=== PATIENT | female | born 1955 | race Caucasian/White ===

== ENCOUNTER 2016-06-01 14:41 | Emergency (ER) | payer BC ==
[~2016-06-01] VITALS: Ht 157.5 cm; Wt 134.0 kg
[~2016-06-01 14:41] MED LIST: ALBUTEROL2.5 MG/3 M IH; ALLOPURINOL300 MG PO; ARTHROTEC 751 TABLET PO; ASPIR 8181 M1 PO; ASPIR-LOW81 MG PO; ASPIRIN81 M2 PO; AZELASTINE137 MCG/0. BOTH NARES; AZITHROMYCIN500 M1 PO; BACTRIM,SEPT1 TABLET PO; BENICAR40 MG PO; BREO ELLIPTA I1 EACH IH; Bactrim,Septra DS 80 PO; CELECOXIB200 MG PO; COUMADIN1 MG PO; CRANBERRY TABL1 EACH PO; Coumadin,Jantoven PO; Cranberry PO; DOCUSATE SODIU100 MG PO; FERROUS SULFAT325 MG PO; FLOVENT 22120 INHALA IH; Flovent 220 mcg IH; GLUCOSA-CHOND-1 EACH PO; Glucophage PO; LASIX40 MG PO; LEVAQUIN750 MG PO; LIPITOR40 MG PO; Lasix PO; Lipitor PO; METFORMIN HCL500 MG PO; MUCINEX ALLERG180 MG PO; MUCINEX1200 MG PO; MULTI-VITAMIN1 EAC4 PO; NEXIUM40 MG PO; OXYCODONE HCL5 MG PO; OXYCODONE-ACET1 EACH PO; PREDNISONE10 MG PO; PREDNISONE20 MG PO; PREDNISONE5 MG PO; Proventil,Ventolin H IH; ROBITUSSIN AC,T10 ML PO; SENOKOT,SENN1 TABLET PO; SINGULAIR10 MG PO; Senokot S,Pericolace PO; Singulair PO; TESSALON PERLE100 MG PO; TRADJENTA5 MG PO; TYLENOL REGULA325 MG PO; Theragran PO; VENTOLIN HFA18 GM IH; VITAMIN C250 MG PO; ZANTAC150 MG PO; ZYRTEC10 M3 PO; Zantac,Taladine PO; Zyloprim PO; oxyCODONE PO
[2016-06-01 15:26] LABS: PROTHROMBIN TIME 10.5 (9.2-11.2); PTT 22.6 (25-32)
[2016-06-01 15:32] LABS: HEMATOCRIT 30.8 % (36.0-46.0); MCH 24.1 PG (29.0-34.0); MCHC 29.5 G/DL (30.0-36.0); MEAN PLAT.VOLUME 10.4 uM^3 (9.5-12.4); RBC DIS.WIDTH-CV 17.1 % (11.8-14.6); RBC DIS.WIDTH-SD 50.9 % (39-53); RED BLOOD COUNT 3.77 M/uL (3.80-5.20)
[2016-06-01 15:48] LABS: MCV 81.7 FL (83-99); PLATELET COUNT 299 K/uL (156-360); WHITE BLOOD COUNT 9.3 K/uL (4.1-10.2)
[2016-06-01 16:57] LABS: CARBON DIOXIDE (BICARBONATE) 32.5 MEQ/L (20-31)
[2016-06-01 17:00] LABS: CHLORIDE 98 mEq/L (99-109); POTASSIUM 4.8 mEq/L (3.7-5.4); SODIUM 136 mEq/L (136-147)
[2016-06-01 17:03] LABS: ANION GAP 12 MEQ/L (2-14)
[2016-06-01 17:04] LABS: TOTAL BILIRUBIN 0.7 mg/dL (0.0-1.0)
[2016-06-01 17:06] LABS: ALKALINE PHOSPHATASE 121 IU/L (3-129); GFR ESTIMATE (CALCULATED) 41 mL/min/
[2016-06-01 17:07] LABS: UREA NITROGEN (BUN) 35 mg/dL (9-23)
[2016-06-01 17:12] LABS: GLUCOSE 557 mg/dL (70-99)
[2016-06-01 17:25] LABS: ADD MIUA? NO; BILIRUBIN NEGATIVE; BLOOD NEGATIVE; COLOR YELLOW ((YELLOW)); GLUCOSE (STRIP) >=1000; KETONES NEGATIVE; LEUKOCYTES NEGATIVE; NITRITE NEGATIVE; PH, URINE 6.5 (5-8); PROTEIN (STRIP) NEGATIVE; SPECIFIC GRAVITY 1.025 (1.000-1.030); UCUL ADDED? NO; UROBILINOGEN 0.2 MG/DL (0.2-1.0)
[2016-06-01 18:55] LABS: POINT-OF-CARE METER ID UU13113702
[2016-06-01] MEDS ORDERED: METFORMIN HCL500 MG PO (20:32)
[2016-06-01 20:41] VITALS: BP 142/63
[2016-06-02 12:07] LABS: POINT-OF-CARE METER ID UU13113694
[2016-06-02 12:08] LABS: POINT-OF-CARE METER ID UU13113702
[2016-06-04] MEDS ORDERED: GLUCOPHAGE1000 MG PO (09:24)
[2016-06-04] MEDS ORDERED: ACTOS45 MG PO (09:25)
[2016-06-04] MEDS ORDERED: TRADJENTA5 MG PO (09:33)
[2016-07-15] MEDS ORDERED: PREDNISONE20 MG PO (13:33)
[2016-07-15] MEDS ORDERED: LANTUS 10100 UNITS/ SC (13:34)
== END 2016-06-01 21:04 | disposition home or self-care (01) ==
LOC: RAD 14:41 → EME 14:41
PROVIDERS: Emergency Medicine; Internal Medicine Pulmonary Disease; Physician Assistant
DX: E11.65 Type 2 diabetes mellitus with hyperglycemia (principal); I10 Essential (primary) hypertension; K21.9 Gastro-esophageal reflux disease without esophagitis; J45.909 Unspecified asthma, uncomplicated; Z79.82 Long term (current) use of aspirin; Z87.891 Personal history of nicotine dependence; Z96.653 Presence of artificial knee joint, bilateral
CPT/HCPCS: 80053; 81003; 82803; 82948; 85027; 85610; 85730; 99281; 99284; J1815; J7120

== ENCOUNTER → 2016-06-07 | Outpatient (CLI) | payer BC ==
[~2016-06-07] VITALS: Ht 157.5 cm; Wt 132.9 kg
[~2016-06-07] MED LIST changes: +ACTOS45 MG PO; +GLUCOPHAGE1000 MG PO
[2016-06-07 15:53] LABS: HEMATOCRIT 30.6 % (36.0-46.0); MCH 23.4 PG (29.0-34.0); MCHC 29.1 G/DL (30.0-36.0); MCV 80.3 FL (83-99); MEAN PLAT.VOLUME 10.1 uM^3 (9.5-12.4); PLATELET COUNT 228 K/uL (156-360); RBC DIS.WIDTH-CV 17.3 % (11.8-14.6); RBC DIS.WIDTH-SD 50.6 % (39-53); RED BLOOD COUNT 3.81 M/uL (3.80-5.20); WHITE BLOOD COUNT 7.4 K/uL (4.1-10.2)
[2016-06-07 15:58] LABS: EOSINOPHIL (%) 0.1 % (0-5); IMMATURE GRANULOCYTE (%) 0.3 % (0.0-0.7); LYMPHOCYTE COUNT 0.6 K/uL (1.0-2.8); MONOCYTE (%) 2.2 % (3-12); MONOCYTE COUNT 0.2 K/uL (0-0.8); NEUTROPHIL (%) 89.3 % (45-76); NEUTROPHIL COUNT 6.6 K/uL (1.8-6.4)
[2016-06-07 16:09] LABS: PROTHROMBIN TIME 10.3 (9.2-11.2)
[2016-06-07 17:10] LABS: POINT-OF-CARE METER ID UU13113694
[2016-06-08 10:24] LABS: POINT-OF-CARE METER ID UU13113694
== END | disposition home or self-care (01) ==
LOC: AMB 14:21
PROVIDERS: Internal Medicine Pulmonary Disease
DX: R05 Cough (principal); R06.02 Shortness of breath; Z53.9 Procedure and treatment not carried out, unspecified reason
CPT/HCPCS: 82948; 85025; 85610; 85730; 99215; J1815

== ENCOUNTER → 2016-07-20 | Outpatient (CLI) | payer BC ==
[~2016-07-20] VITALS: Ht 157.5 cm; Wt 132.9 kg
[~2016-07-20] MED LIST changes: +LANTUS 10100 UNITS/ SC
[2016-07-20 13:49] LABS: POINT-OF-CARE METER ID UU13113694; POINT-OF-CARE USER ID AHSUCAJR
[2016-07-20 14:19] LABS: HEMATOCRIT 32.5 % (36.0-46.0); MCH 22.6 PG (29.0-34.0); MCHC 28.3 G/DL (30.0-36.0); MCV 79.9 FL (83-99); RBC DIS.WIDTH-CV 20.7 % (11.8-14.6); RBC DIS.WIDTH-SD 59.5 % (39-53); RED BLOOD COUNT 4.07 M/uL (3.80-5.20); WHITE BLOOD COUNT 8.8 K/uL (4.1-10.2)
[2016-07-20 14:41] LABS: PTT 23.2 (25-32)
[2016-07-20 15:37] LABS: HEMATOLOGY COMMENT 1 SMEAR COMPATIBLE; MEAN PLAT.VOLUME 9.5 uM^3 (9.5-12.4); PLATELET COUNT 206 K/uL (156-360)
== END | disposition home or self-care (01) ==
LOC: AMB 11:14
PROVIDERS: Internal Medicine Pulmonary Disease
PROC: 0B9B8ZX Drainage of Left Lower Lobe Bronchus, Via Natural or Artificial Opening Endoscopic, Diagnostic (ICD-10-PCS; principal; 2016-07-20)
PROC: 0B968ZX Drainage of Right Lower Lobe Bronchus, Via Natural or Artificial Opening Endoscopic, Diagnostic (ICD-10-PCS; principal; 2016-07-20)
DX: R05 Cough (principal); R94.2 Abnormal results of pulmonary function studies; R06.02 Shortness of breath; J45.909 Unspecified asthma, uncomplicated; Z87.891 Personal history of nicotine dependence; I27.2 Other secondary pulmonary hypertension; A50.02 Early congenital syphilitic osteochondropathy; R09.02 Hypoxemia; Z99.81 Dependence on supplemental oxygen
CPT/HCPCS: 82948; 85027; 85610; 85730; 87070; 87116; 87205; 87206; 88108; J0461; J2175; J2250; J2550; J3010

== ENCOUNTER 2017-02-26 15:10 | Inpatient (IN) | payer BC ==
[~2017-02-26] VITALS: Ht 157.5 cm; Wt 130.2 kg
[~2017-02-26 15:10] MED LIST changes: -CRANBERRY TABL1 EACH PO; +CRANBERRY425 MG PO; -GLUCOPHAGE1000 MG PO; +GLUCOPHAGE500 MG PO
[2017-02-26 15:49] LABS: INTER. NORMALIZED RATIO 1.2
[2017-02-26 15:53] LABS: EOSINOPHIL COUNT 0.3 K/uL (0-0.3); IMMATURE GRANULOCYTE (%) 0.7 % (0.0-0.7); IMMATURE GRANULOCYTE COUNT 0.1 K/uL; INSTRUMENT ABS NEUTROPHIL CT 5.1 K/uL; LYMPHOCYTE COUNT 0.6 K/uL (1.0-2.8); MCH 23.7 PG (29.0-34.0); MCV 78.9 FL (83-99); MEAN PLAT.VOLUME 9.4 uM^3 (9.5-12.4); MONOCYTE (%) 10.2 % (3-12); MONOCYTE COUNT 0.7 K/uL (0-0.8); NEUTROPHIL (%) 75.4 % (45-76); NEUTROPHIL COUNT 5.1 K/uL (1.8-6.4); PLATELET COUNT 188 K/uL (156-360); RBC DIS.WIDTH-SD 50.3 % (39-53); RED BLOOD COUNT 2.79 M/uL (3.80-5.20); WHITE BLOOD COUNT 6.8 K/uL (4.1-10.2)
[2017-02-26 15:59] LABS: ANION GAP 7 MEQ/L (2-14); CHLORIDE 101 MEQ/L (99-109); SAMPLE HEMOLYSIS CHECK 0; SAMPLE ICTERIC CHECK 0; SAMPLE LIPEMIA CHECK 0; SODIUM 136 MEQ/L (136-147)
[2017-02-26 16:05] LABS: GFR ESTIMATE (CALCULATED) 38 mL/min/; GLUCOSE 79 mg/dL (70-99); UREA NITROGEN (BUN) 64 mg/dL (9-23)
[2017-02-26] MEDS ORDERED: VITRON-C TABLE1 EACH PO (16:56)
[2017-02-26] MEDS ORDERED: NESINA25 MG PO (16:57)
[2017-02-26] MEDS ORDERED: PROAIR HFA8.5 GM IH (16:57)
[2017-02-26 19:54] VITALS: BP 145/65
[2017-02-26 22:16] LABS: POINT-OF-CARE METER ID UU14208750
[2017-02-26 22:45] VITALS: BP 115/53
[2017-02-26 23:03] VITALS: BP 108/48
[2017-02-26 23:07] VITALS: BP 128/60
[2017-02-26 23:43] LABS: IRON 16 MCG/DL (35-150)
[2017-02-27] VITALS (14 sets, daily range): BP systolic 109–139; BP diastolic 53–78
[2017-02-27 04:29] LABS: EOSINOPHIL (%) 6.6 % (0-5); EOSINOPHIL COUNT 0.5 K/uL (0-0.3); HEMATOCRIT 23.6 % (36.0-46.0); IMMATURE GRANULOCYTE (%) 0.4 % (0.0-0.7); INSTRUMENT ABS NEUTROPHIL CT 4.7 K/uL; LYMPHOCYTE COUNT 0.9 K/uL (1.0-2.8); MCH 25.3 PG (29.0-34.0); MCHC 32.6 G/DL (30.0-36.0); MCV 77.6 FL (83-99); MONOCYTE (%) 14.7 % (3-12); MONOCYTE COUNT 1.1 K/uL (0-0.8); NEUTROPHIL (%) 65.5 % (45-76); NEUTROPHIL COUNT 4.7 K/uL (1.8-6.4); NRBC (%) 0.3 /100 WBC (0-0); RBC DIS.WIDTH-CV 17.4 % (11.8-14.6); RBC DIS.WIDTH-SD 48.7 % (39-53); RED BLOOD COUNT 3.04 M/uL (3.80-5.20); WHITE BLOOD COUNT 7.2 K/uL (4.1-10.2)
[2017-02-27 05:47] LABS: ANISOCYTOSIS 1+; ATYPICAL LYMPHOCYTE 1.9 %; BURR CELLS 1+; EOSINOPHIL ABS CT 0.4; EOSINOPHILS 5.8 % (0-5.0); HYPOCHROMASIA 2+; LYMPHOCYTES 4.9 % (15.0-45.0); MACROCYTES 1+; MICROCYTOSIS 1+; OVALOCYTES 2+; PLAT.SUFFICIENCY ADEQUATE; PLATELET COUNT 173 K/uL (156-360); POIKILOCYTOSIS 1+; ROULEAUX 1+; SEG.NEUTROPHILS 69.9 % (46.0-76.0); SMUDGE CELLS 64.1; TARGET CELLS 1+
[2017-02-27 05:48] LABS: MEAN PLAT.VOLUME 11.4 uM^3 (9.5-12.4)
[2017-02-27 08:13] LABS: FERRITIN 35 NG/ML (10-291)
[2017-02-27 09:13] LABS: POINT-OF-CARE METER ID UU14208750
[2017-02-27 12:07] LABS: POINT-OF-CARE METER ID UU14208750
[2017-02-27 16:33] LABS: POINT-OF-CARE METER ID UU14208750
[2017-02-27 17:48] LABS: EOSINOPHIL (%) 0 % (0-5); HEMATOCRIT 28.5 % (36.0-46.0); IMMATURE GRANULOCYTE (%) 0.6 % (0.0-0.7); INSTRUMENT ABS NEUTROPHIL CT 5.8 K/uL; LYMPHOCYTE COUNT 0.3 K/uL (1.0-2.8); MCH 25.7 PG (29.0-34.0); MCHC 31.9 G/DL (30.0-36.0); MCV 80.5 FL (83-99); MEAN PLAT.VOLUME 9.6 uM^3 (9.5-12.4); MONOCYTE (%) 4.5 % (3-12); MONOCYTE COUNT 0.3 K/uL (0-0.8); NEUTROPHIL (%) 89.6 % (45-76); NEUTROPHIL COUNT 5.8 K/uL (1.8-6.4); PLATELET COUNT 198 K/uL (156-360); RBC DIS.WIDTH-CV 17.4 % (11.8-14.6); RBC DIS.WIDTH-SD 50.4 % (39-53); RED BLOOD COUNT 3.54 M/uL (3.80-5.20); WHITE BLOOD COUNT 6.5 K/uL (4.1-10.2)
[2017-02-27 22:07] LABS: POINT-OF-CARE METER ID UU14208750
[2017-02-28] VITALS (8 sets, daily range): BP systolic 109–133; BP diastolic 52–66
[2017-02-28 05:54] LABS: EOSINOPHIL (%) 3.3 % (0-5); EOSINOPHIL COUNT 0.3 K/uL (0-0.3); HEMATOCRIT 26.2 % (36.0-46.0); IMMATURE GRANULOCYTE (%) 0.6 % (0.0-0.7); IMMATURE GRANULOCYTE COUNT 0.1 K/uL; INSTRUMENT ABS NEUTROPHIL CT 6.1 K/uL; MCH 26.1 PG (29.0-34.0); MCHC 32.1 G/DL (30.0-36.0); MCV 81.4 FL (83-99); MEAN PLAT.VOLUME 9.9 uM^3 (9.5-12.4); MONOCYTE (%) 13.6 % (3-12); MONOCYTE COUNT 1.2 K/uL (0-0.8); NEUTROPHIL (%) 70.8 % (45-76); NEUTROPHIL COUNT 6.1 K/uL (1.8-6.4); PLATELET COUNT 182 K/uL (156-360); RBC DIS.WIDTH-CV 17.7 % (11.8-14.6); RBC DIS.WIDTH-SD 51.4 % (39-53); RED BLOOD COUNT 3.22 M/uL (3.80-5.20); WHITE BLOOD COUNT 8.7 K/uL (4.1-10.2)
[2017-02-28 06:41] LABS: POINT-OF-CARE METER ID UU14208750
[2017-02-28 12:09] LABS: POINT-OF-CARE METER ID UU14208750
[2017-02-28 16:38] LABS: POINT-OF-CARE METER ID UU14208750
[2017-02-28 21:43] LABS: POINT-OF-CARE METER ID UU14314084
[2017-03-01 00:38] VITALS: BP 134/61
[2017-03-01 01:00] VITALS: BP 147/64
[2017-03-01 02:00] VITALS: BP 140/63
[2017-03-01 03:03] VITALS: BP 144/76
[2017-03-01 06:19] LABS: POINT-OF-CARE METER ID UU14208750
[2017-03-01 06:38] LABS: EOSINOPHIL (%) 0 % (0-5); HEMATOCRIT 32.1 % (36.0-46.0); IMMATURE GRANULOCYTE (%) 0.7 % (0.0-0.7); IMMATURE GRANULOCYTE COUNT 0.1 K/uL; INSTRUMENT ABS NEUTROPHIL CT 6.9 K/uL; LYMPHOCYTE COUNT 0.3 K/uL (1.0-2.8); MCH 26.7 PG (29.0-34.0); MCHC 32.1 G/DL (30.0-36.0); MCV 83.2 FL (83-99); MEAN PLAT.VOLUME 10.4 uM^3 (9.5-12.4); MONOCYTE COUNT 0.1 K/uL (0-0.8); NEUTROPHIL (%) 94.9 % (45-76); NEUTROPHIL COUNT 6.9 K/uL (1.8-6.4); PLATELET COUNT 185 K/uL (156-360); RBC DIS.WIDTH-CV 17.6 % (11.8-14.6); RBC DIS.WIDTH-SD 52.7 % (39-53); RED BLOOD COUNT 3.86 M/uL (3.80-5.20); WHITE BLOOD COUNT 7.3 K/uL (4.1-10.2)
[2017-03-01 07:45] VITALS: BP 135/70
[2017-03-01 09:13] LABS: POC NON-PRINT COM 1 ND
[2017-03-01 09:16] LABS: POC NON-PRINT COM 1 ND
[2017-03-01 12:19] LABS: POINT-OF-CARE METER ID UU14162508
== END 2017-03-01 15:25 | disposition home or self-care (01) | DRG 981 ==
LOC: EME 15:10 → EDOF 16:51 → 2EAST 16:51 → ENRESERV 16:58 → 2EAST 19:26
PROVIDERS: Emergency Medicine; Family Medicine; Specialist
PROC: 30233N1 Transfusion of Nonautologous Red Blood Cells into Peripheral Vein, Percutaneous Approach (ICD-10-PCS; principal; 2017-02-26)
PROC: 0W3Q0ZZ Control Bleeding in Respiratory Tract, Open Approach (ICD-10-PCS; 2017-02-26)
PROC: 2Y41X5Z Packing of Nasal Region using Packing Material (ICD-10-PCS; 2017-02-26)
DX: K92.1 Melena (principal); J96.91 Respiratory failure, unspecified with hypoxia; D62 Acute posthemorrhagic anemia; Z68.43 Body mass index [BMI] 50.0-59.9, adult; R04.0 Epistaxis; N17.9 Acute kidney failure, unspecified; M31.31 Wegener's granulomatosis with renal involvement; Z88.0 Allergy status to penicillin; Z88.1 Allergy status to other antibiotic agents; Z88.6 Allergy status to analgesic agent; Z91.048 Other nonmedicinal substance allergy status; J45.909 Unspecified asthma, uncomplicated; K21.9 Gastro-esophageal reflux disease without esophagitis; I27.20 Pulmonary hypertension, unspecified; J47.9 Bronchiectasis, uncomplicated; N18.9 Chronic kidney disease, unspecified; Z99.81 Dependence on supplemental oxygen; M19.90 Unspecified osteoarthritis, unspecified site; E78.5 Hyperlipidemia, unspecified; E11.22 Type 2 diabetes mellitus with diabetic chronic kidney disease; Z83.3 Family history of diabetes mellitus; Z81.1 Family history of alcohol abuse and dependence; Z23 Encounter for immunization; E86.0 Dehydration; I12.9 Hypertensive chronic kidney disease with stage 1 through stage 4 chronic kidney disease, or unspecified chronic kidney disease; Z96.653 Presence of artificial knee joint, bilateral; Z87.891 Personal history of nicotine dependence; Z80.0 Family history of malignant neoplasm of digestive organs; Z79.84 Long term (current) use of oral hypoglycemic drugs; Z80.1 Family history of malignant neoplasm of trachea, bronchus and lung; E66.01 Morbid (severe) obesity due to excess calories; J98.4 Other disorders of lung
CPT/HCPCS: 80048; 82272; 82728; 82948; 83540; 84466; 85014; 85018; 85025; 85025 91; 85610; 86850; 86900; 86901; 86920; 90686; 94010; 94640; 94640 76; 94667; 94668; 94799; 99202; 99281; 99285; J1815; J2930; J7030; J7512; P9016

== ENCOUNTER 2017-05-28 14:26 | Emergency (ER) | payer BC ==
[~2017-05-28] VITALS: Ht 157.5 cm; Wt 125.0 kg
[~2017-05-28 14:26] MED LIST changes: +NESINA25 MG PO; +PROAIR HFA8.5 GM IH; +VITRON-C TABLE1 EACH PO
[2017-05-28 16:13] LABS: HEMOGLOBIN 8.7 G/DL (11.9-15.5); MCHC 31.1 G/DL (30.0-36.0); MCV 83.8 FL (83-99); PLATELET COUNT 215 K/uL (156-360); RBC DIS.WIDTH-CV 20.8 % (11.8-14.6); RBC DIS.WIDTH-SD 63.7 % (39-53); RED BLOOD COUNT 3.34 M/uL (3.80-5.20); WHITE BLOOD COUNT 8.5 K/uL (4.1-10.2)
[2017-05-28 16:21] LABS: CHLORIDE 107 mEq/L (99-109); POTASSIUM 4.7 mEq/L (3.7-5.4); SODIUM 141 mEq/L (136-147)
[2017-05-28 16:22] LABS: GLUCOSE 106 mg/dL (70-99)
[2017-05-28 16:26] LABS: CREATININE 1.8 mg/dL (0.6-1.3); GFR ESTIMATE (CALCULATED) 31 mL/min/
[2017-05-28 16:27] LABS: UREA NITROGEN (BUN) 78 mg/dL (9-23)
[2017-05-28] MEDS ORDERED: KEFLEX500 MG PO (16:57)
[2017-05-28 18:33] VITALS: BP 141/88
== END 2017-05-28 18:35 | disposition home or self-care (01) ==
LOC: EME 14:26
PROVIDERS: Nurse Practitioner Family
PROC: 2Y41X5Z Packing of Nasal Region using Packing Material (ICD-10-PCS; principal; 2017-05-28)
DX: R04.0 Epistaxis (principal); E11.9 Type 2 diabetes mellitus without complications; K21.9 Gastro-esophageal reflux disease without esophagitis; I10 Essential (primary) hypertension; J45.909 Unspecified asthma, uncomplicated; Z87.891 Personal history of nicotine dependence; Z99.81 Dependence on supplemental oxygen; Z96.653 Presence of artificial knee joint, bilateral; Z79.4 Long term (current) use of insulin; Z88.0 Allergy status to penicillin; Z88.1 Allergy status to other antibiotic agents; Z88.8 Allergy status to other drugs, medicaments and biological substances
CPT/HCPCS: 80048; 82948; 85027; 99281; 99284; J7030